=== PATIENT | male | born 1975 | race African-American/Black ===

== ENCOUNTER → 2017-06-28 | Day surgery (SDC) | payer MEDICARE, MEDICAID ==
[~2017-06-28] VITALS: Ht 185.4 cm; Wt 105.7 kg
[~2017-06-28] MED LIST: ACET-2178 PO; BALANCED SALT IRRIG SOLN 15ML ONE; BUPIVACAINE HCL/PF 0.75% (7.5MG/ML) 10ML ONE; CIPROFLOXACIN 0.3% OPHTH SOLN 2.5ML LEFTEYE ONE; EMTR1TAB11 PO; FENTANYL CITRATE/PF 50MCG/ML 5ML VIAL ONE; HYDROMORPHONE HCL/PF 2MG/ML CPJ IV PRN; IBUP-2029 PO; LABETALOL 5MG/ML SYR 20 MG/4 ML SYRINGE IV PRN; LACTATED RINGERS 1,000 ML IV SCH; LIDOCAINE HCL 2%/EPINEPHRINE 1:100,000 20 ML VIAL INFIL ONE; MEPERIDINE HCL/PF 25MG/ML CPJ IV PRN; METHYLPREDNISOLONE SOD SUCC 40 MG/ML VIAL ONE; MIDAZOLAM HCL 2 MG/2 ML VIAL ONE; NEO/POLYMYX B SULF/DEXAMETH OPHTH OINT 3.5GM ONE; ONDANSETRON HCL 4MG/2ML VIAL IV PRN; TOBRAMYCIN SULFATE 80MG/2ML 30ML ONE
== END | disposition home or self-care (01) ==
LOC: OR 07:03
PROVIDERS: ATTEND Ophthalmology
DX: H11.002 Unspecified pterygium of left eye (principal)
CPT/HCPCS: 65426; 88304; J2250; J2920; J3010; J3260; J3490; J7120